=== PATIENT | male | born 1950 | race Caucasian/White ===

== ENCOUNTER 2018-03-12 07:48 | Outpatient (CLI) | payer OTHER | END 2018-03-12 16:47 | disposition home or self-care (01) | LOC: LAB 07:48 | DX: R91.1 Solitary pulmonary nodule (principal); Z72.0 Tobacco use; A15.0 Tuberculosis of lung; B48.8 Other specified mycoses ==

== ENCOUNTER 2018-03-20 07:31 | Outpatient (CLI) | payer OTHER | END 2018-03-20 07:43 | disposition home or self-care (01) | LOC: NUCLEAR 07:31 | DX: R91.1 Solitary pulmonary nodule (principal); Z72.0 Tobacco use | CPT/HCPCS: 78816; A9552 ==